=== PATIENT | male | born 1945 | race Caucasian/White ===

== ENCOUNTER 2016-08-31 11:39 | Inpatient (IN) | payer OTHER ==
[2016-08-31] VITALS (16 sets, daily range): BP systolic 82–109; BP diastolic 54–86; PULSE 56–84; RESP 16–20; O2SAT 97–100
[~2016-08-31] VITALS: Ht 175.3 cm; Wt 70.6 kg
[2016-08-31] MEDS ORDERED: NitroPRUSSIDE 25,000 mCg/mL 2 mL Inj IV ONE (11:55)
[2016-08-31] MEDS ORDERED: Nitroglycerin 50,000 mcg/250 mL D5W Premix IV ONE (11:55)
[2016-08-31] MEDS ORDERED: Heparin 1,000 Units/500 mL NS Premix IV ONE (11:55)
[2016-08-31] MEDS ORDERED: Heparin 5,000 Units/500 mL NS Premix IV ONE (11:55)
[2016-08-31] MEDS ORDERED: 0.9% Sodium Chloride 250 ML ONE (11:55)
[2016-08-31] MEDS ORDERED: Heparin 1,000 Unit/mL 10 mL Inj ONE (11:55)
[2016-08-31] MEDS ORDERED: fentaNYL-PF 50 mCg/mL 2 mL Inj ONE ×2 (12:09→12:15)
--- NOTE | 2016-08-31 12:16 | PCM.EDPN ---
ED Note Date of Service Aug 31, 2016 This is to simply documented that I received a phone call from [facility] requesting a stat transfer for a inferior ST segment elevation VT. I accepted patient transfer, and initiated the STEMI process and the Automatic Presser was activated. I reviewed the EKG that was faxed over the confirms an inferior ST segment elevation VT with reciprocal changes. I discussed the case with the secondary art teacher except the patient to come directly to the Automatic Presser. I walked with the EMS crew to the Automatic Presser to help make sure everyone in the team were present, and they were. I did not interview or examine the patient was wide awake in no visible discomfort. Ruperto Dunn MD Aug 31, 2016 12:16
[2016-08-31] MEDS ORDERED: Atropine 1 mg/10 mL (Code) Syringe ONE (12:32)
[2016-08-31 13:56] LABS: BASOPHILS % (AUTO) 0.2 % (0-3); EOSINOPHILS % (AUTO) 0.7 % (0-5); MONOCYTES % (AUTO) 8.2 % (4-12); Mean Corpuscular Hemoglobin 30.9 pg (27.0-35.0); Mean Corpuscular Volume 90.3 fL (81-100); NEUTROPHILS % (AUTO) 80.7 % (40-74); Platelet Count 207 bil/L (150-400)
[2016-08-31 14:51] LABS: Magnesium 2.1 mg/dL (1.6-2.6)
[2016-08-31 15:10] LABS: TROPONIN T 7.09 ug/L (0.0-0.011)
--- NOTE | 2016-08-31 15:24 | PCM.HPMED ---
Subjective Date of Service Aug 31, 2016 Primary Provider: Admitting Physician: Primary Care Physician: Other,Physician Attending Physician: Gorge Martines MD Chief Complaint: Inferior ST elevation MT HISTORY was OBTAINED FROM PATIENT / Zero Locus NOTES History of present illness 71-year-old male that was transferred from [facility] with elevated troponin and inferior ST elevation, taken to the [facility] s/p RCA stent/clopidogrel/Nipride/nitroglycerin/heparin with Dr Mckenzie. Trop I 7 at 2pm. He has had substernal intermittent chest pain since mother passed about 08/11/2016. No current chest pain. Per Board Mixer Tender - 1. Left main: No significant disease. 2. LAD in its mid segment has about 20% to 30% plaquing. Moderate calcification of the coronaries is noted. 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 3. Circumflex is nondominant. It is free of any critical stenosis. 4. Right coronary artery is seen via intracoronary collaterals from [id number]. 5. Right coronary artery is totally occluded in its proximal segment, as mentioned. The distal vessel is seen via intracoronary collaterals. 6. Left heart catheterization revealed an LVEDP of 15. There was no gradient upon pullback. Review of Systems - none of the following - F/C/sick contact / wt change/ HERMOSILLO / lightheaded / dizziness / sob / cough / cp / acid reflux / n/v/diarrhea / bleeding/bruising / leg swelling / change in voiding / yeast infections / rash FAMILY HX mother CABG SOCIAL HX distant smoker/etoh, MEDICATIONS multiple PRN Past Medical/Surgical HX Anxiety Agent orange dermatological left groin vasculatrure operation, related to prior injury Allergies Coded Allergies: valproic acid (Verified Allergy, Unknown, 08/31/16) PMH Social History Hx Alcohol Use: No Hx Substance Use: No Exam Vital Signs Vital Sign - Last Date Time Temp Pulse Resp B/P Pulse Ox O2 Delivery O2 Flow Rate FiO2 08/31/16 15:16 65 16 85/55 97 Room Air Lab and Diagnostics Labs Exam on admission standing in room talking w RN NAD A and O x 3 mood affect WNL NC/AT no icterus no injected eyes EOMI PERRL /no pharyngeal lesions/ no oral lesions / hearing intact Supple neck CTAB equal chest rise / no accessory muscle use / speaks in full sentences / no rrw RRR S1 S2 / no mrg / 2+ radial pulses Soft nt nd + BS no hepatosplenomegaly No edema no cyanosis no ecchymosis of lower extremities / varicose veins bilateral legs No rash / no jaundice HORVATH EKG ST elevation III/aVF, depression V2-4 SR57 Trop 7 Result Diagram: 08/31/16 1345 08/31/16 1345 Assessment & Plan Active issues and reason for admission STEMI, s/p RCA stented --monitor for hypotension, prn IVF --asa plavix statin metoprolol --pending lipid panel Chronic issues known prior to admission, present on admission Anxiety, prn ativan agent orange --pending other med rec prn meds Diet cardiac DVT prophylaxis heparin scd Code full Disposition inpatient status Assessment and plan were discussed with patient . Nikita Leung MD Aug 31, 2016 15:24 Nikita Leung MD Aug 31, 2016 15:24
[2016-08-31] MEDS ORDERED: Alum-Mag Hydrox-Simeth 30 mL Suspension PO PRN (15:25)
[2016-08-31] MEDS ORDERED: Ondansetron 2 mg/mL 2 mL Inj IVPUSH PRN ×2 (15:25→16:05)
--- NOTE | 2016-08-31 15:46 | CONS ---
[address] [address] CONSULTATION REPORT PATIENT: GERALD PADILLA : 1945 MR#: [id number] ADMIT: 08/31/2016 JOB ID: [id number] DATE OF SERVICE: 08/31/2016 CARDIOLOGY CONSULTATION: CHIEF COMPLAINT: Chest discomfort. This gentleman was transferred from [facility]. Dr. Ruperto Dunn contacted me. He was suspected of having an acute inferior IN. The patient has been having off and on chest discomfort for the past three weeks. The chest discomfort starts in his legs and goes up his chest. He also has a heaviness in his chest. He had been ignoring it up until now. He spoke with his sister who informed him that there is a family history of coronary artery disease amongst his parents. He decided to seek medical attention on the advice of his sister. An EKG done at [facility] showed inferior ST elevation. He was transferred over. The patient was examined in a gurney in the shellfish processing laborer. The patient denies any significant prior IN or medical history other than night terrors for which he was prescribed valproic acid and he is allergic to VALPROIC ACID. MEDICATIONS AT HOME: None. He uses painkillers on a p.r.n. basis. SOCIAL HISTORY: Denies smoking for the last four years. Denies any drug or alcohol abuse. Lives by himself. . REVIEW OF SYSTEMS: Comprehensive review of system was done. Pertinent negatives are no GI or bleeding. No prior history of stroke, CVAs. No upcoming surgeries. FAMILY HISTORY: Positive for coronary artery disease. PHYSICAL EXAMINATION: On examination, no significant distress noted. Verbose man who looks somewhat older than his stated age. Pulse 80, blood pressure 120/70. Neck is supple. No JVD at about a 45 degrees angle. Chest: Clear anteriorly. Heart sounds S1, S2, regular. No gallops. Abdomen is soft. Extremities negative for CCE. DESK OPERATOR: Alert and oriented. 2+ femoral pulses bilaterally. The radial pulses are 2+ as well. ASSESSMENT AND PLAN: This gentleman presented with an acute inferior myocardial infarction. His presentation is somewhat delayed, but given his ongoing ST elevation, it is possible that he has been having a stuttering type of an infarct. Risks and benefits were explained to the patient. He proceeded to go ahead with an intervention. The details about the intervention were reported elsewhere. Not unexpectedly, he had a totally occluded RCA which was stented with a bare metal stent. Bare metal stent was chosen (a) because of the risk of restenoses in a large vessel and a short stent is fairly low and (b) I am not sure about his ability to comply with medications. The patient will be admitted to the hospitalist service and Dr. Carlin will be the attending table worker packager while he is in the hospital.
[2016-08-31] MEDS ORDERED: Clopidogrel 300 mg Tablet (LOADING DOSE) PO ONE (16:05)
[2016-08-31] MEDS ORDERED: Atropine 1 mg/10 mL (Code) Syringe IVPUSH PRN (16:05)
[2016-08-31] MEDS ORDERED: 0.9% Sodium Chloride 250 ML BOLUS IV PRN (16:05)
[2016-08-31] MEDS ORDERED: 0.9% Sodium Chloride 400 ML (4 HRS) IV ONE (16:05)
[2016-08-31] MEDS ORDERED: Sodium Chloride LOK Flush 10 mL Syringe IVFLUSH PRN (16:05)
--- NOTE | 2016-08-31 16:36 | DI95 ---
[address] [address] INTERVENTIONAL CARDIAC CATHETERIZATION PATIENT: GERALD PADILLA : 1945 MR#: [id number] ADMIT: 08/31/2016 JOB ID: [id number] PROCEDURES: 1. Selective right and left coronary angiography. 2. Left heart catheterization. 3. Percutaneous intervention on the right coronary artery. INDICATION: Acute ND. PROCEDURAL DETAILS: The reader is referred to the procedure log for complete details. Briefly, it was done via right femoral approach using a 6-Iranian system. The coders are referred to the procedure log as well. DATE OF SERVICE: 08/31/2016 FINDINGS: 1. Left main: No significant disease. 2. LAD in its mid segment has about 20% to 30% plaquing. Moderate calcification of the coronaries is noted. 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 3. Circumflex is nondominant. It is free of any critical stenosis. 4. Right coronary artery is seen via intracoronary collaterals from [id number]. 5. Right coronary artery is totally occluded in its proximal segment, as mentioned. The distal vessel is seen via intracoronary collaterals. 6. Left heart catheterization revealed an LVEDP of 15. There was no gradient upon pullback. INTERVENTIONAL REPORT: We then proceeded ahead with an intervention on the RCA. It was predilated with a 2.0 balloon and then stented with a 3.5 x 15 mm bare metal Vision stent. A bare metal stent was chosen because the patient lives in the [place] and I am not certain about his medication compliance. The patient will be admitted to the hospital. and the medical team shall be resuming his care.
[2016-09-01] VITALS (9 sets, daily range): BP systolic 85–113; BP diastolic 56–73; PULSE 62–77; RESP 16–22; O2SAT 97–99
[2016-09-01 05:48] LABS: BASOPHILS % (AUTO) 0.1 % (0-3); EOSINOPHILS % (AUTO) 1.1 % (0-5); MONOCYTES % (AUTO) 12.7 % (4-12); Mean Corpuscular Volume 90.3 fL (81-100); NEUTROPHILS % (AUTO) 70.9 % (40-74); Platelet Count 216 bil/L (150-400)
[2016-09-01] MEDS ORDERED: MeTOProlol XL 25 mg ER24 Tablet PO SCH (09:30)
[2016-09-01] MEDS ORDERED: MeTOProlol XL 25 mg ER24 Tablet PO ONE (11:05)
--- NOTE | 2016-09-01 11:08 | PCM.PNCARD ---
Subjective Date of service Sep 01, 2016 Chief Complaint # Acute inferior wall STEMI # S/P successful PCI (balloon angioplasty and subsequent Vision BMS to the RCA / Dr. Martines (08/31/2016). # Single Vz CAD (RCA) # HLD # Tobacco Abuse (Quit 2013) History of Present Illness Mr. Kerwin Segura is a very pleasant 71-year-old male with no previous cardiac history. The patient was initially seen by Dr. Ruperto Dunn at [facility] for evaluation of substernal chest pain. A 12-lead EKG performed at [facility] showed Inferior ST elevation. Dr. Dunn felt that the patient was experiencing an acute inferior wall MD. The patient was transferred to [facility] and was admitted through the emergency department and subsequently taken emergently to the cardiac catheterization lab / Dr. Martines. The patient had been experiencing off and on chest discomfort for the past three weeks. The chest discomfort starts in his legs and goes up his chest. He also has a heaviness in his chest. He had been ignoring it up until now. He spoke with his sister who informed him that there is a family history of coronary artery disease amongst his parents. He decided to seek medical attention on the advice of his sister. The patient denies any significant prior MD or medical history other than night terrors for which he was prescribed valproic acid. The patient relates that he is ALLERGIC to VALPROIC ACID. Cardiac Risk Factors: 1. HLD 2. Tobacco Abuse: Quit smoking 3 years ago Coronary angiography: 08/31/2016 1. Left main: No significant disease. 2. LAD: in its mid segment has about 20% to 30% plaquing. Moderate calcification of the coronaries is noted. 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 3. LCx: Nondominant. It is free of any critical stenosis. 4. RCA: is seen via intracoronary collaterals from [id number]. 5. RCA: is totally occluded in its proximal segment, as mentioned. The distal vessel is seen via intracoronary collaterals. 6. Left heart catheterization revealed an LVEDP of 15. There was no gradient upon pullback. PCI: Dr. Martines 08/31/2016: 1. Successful balloon angioplasty and then stented with a 3.5 x 15 mm Vision BMS. A bare metal stent was chosen because the patient lives in the [place] and I am not certain about his medication compliance. Subjective: BP: 94-110/62-73 mmHg, HR: 60-72 BPM Telemetry: Today, the patient relates that he is feeling very well. He denies any type of anginal symptom, no shortness of breath/dyspnea, no palpitations, no dizziness, lightheadedness, presyncopal or jonna syncopal episodes, no lower extremity swelling, no PND/orthopnea symptoms. Current medications: 1. Metoprolol 25 mg one by mouth twice a day 2. Atorvastatin 40 mg one by mouth daily 3. Plavix 75 mg one by mouth daily 4. Aspirin 81 mg one by mouth daily 5. Lisinopril 2.5 mg one by mouth daily Labs: 09/01/2016 1. CBC: H&H: 14.4 / 41.9 (stable) 2. CMP: BUN / creatinine: 16 / 0.68 (stable) 3. Total cholesterol 193, LDL: 131, HDL: 46, VLDL: 15.4, triglycerides: 154 4. Troponin: 7.09 (Admission) Additional Information: Comprehensive review of system was done. Pertinent negatives are no GI or bleeding. No prior history of stroke, CVAs. No upcoming surgeries. Exam Vital Signs Vital Sign - Last Date Time Temp Pulse Resp B/P Pulse Ox O2 Delivery O2 Flow Rate FiO2 09/01/16 09:20 36.3 68 16 99/62 99 Room Air Intake and Output 08/31/16 08/31/16 09/01/16 Cumulative From/Thru 15:00 23:00 07:00 08/31/16 18:14 - 09/01/16 06:34 Intake Total 100 ml 100 ml Output Total 600 ml 400 ml 1000 ml Balance -600 ml -300 ml -900 ml Intake Oral 100 ml 100 ml Output Urine Total 600 ml 400 ml 1000 ml Additional Information: Gen.: Mr. Huber is a very pleasant 71-year-old male is sitting comfortably in front of me in no acute distress. He is awake alert and oriented . The patient looks somewhat older than his stated age Head: NC/AT Oropharynx: There is no posterior pharyngeal erythema or exudate noted, tongue is midline and mobile, mucous membranes are moist . Neck is supple. Supple, No JVD at about a 45 degrees angle. No apparent jugular reflux Chest: CTA Heart: RRR, normal S1, S2, no murmurs clicks or gallops are auscultated. Abdomen: soft, flat, nontender, LKS non-palpable, NABS 4 quadrants, no masses. Extremities: No pretibial edema noted, 2+ femoral pulses bilaterally. The radial pulses are 2+ bilaterally. Right groin puncture wound site: No hematoma , no ecchymosis, there is no bruit, distal pulses: Dorsalis pedis is one plus over 4. The foot is warm dry and appears to be well-perfused. Skin: Warm, dry of good turgor without masses, rashes or lesions Lab and Diagnostics Result Diagram: 09/01/1652909/01/16529 Assessment & Plan Assessment # Acute inferior wall STEMI The patient is currently stable and doing well following his recent inferior wall ST elevation MD. Recommendation: 1. Continue metoprolol 25 mg one by mouth twice a day 2. Continue aspirin 81 mg one by mouth today 3. Continue Plavix 75 mg one by mouth daily 4. Continue lisinopril 2.5 mg per day 5. Continue atorvastatin 40 mg one by mouth daily 6. Await 2-D echocardiogram to assess left ventricular function (ejection fraction) (Ordered) # Single-vessel Coronary artery disease (RCA) The patient has severe single-vessel coronary artery disease involving the right coronary artery. The right coronary artery was receiving collateral flow from the LAD prior to his PCI. Recommendation: 1. As above continue current medical management # S/P successful PCI (balloon angioplasty and subsequent Vision BMS to the RCA ) / Dr. Bobbi Martines was able to successfully balloon angioplasty and subsequently place a vision bare metal stent in the right coronary artery. Recommendation: 1. Continue current medical management as noted above # HLD Recommendation: 1. Atorvastatin as noted above Problems: Cardiology Plan: Lipid assessment & treatment, Post MD care, Cardiac Rehab ( patient will attend cardiac rehabilitation following his hospitalization for an acute inferior wall MD) Pain Evaluation: Adequate Pain Control VTE Mechanical Devices: Intermittant Pneumatic CD Conor Sheridan PA-C Sep 01, 2016 11:08
--- NOTE | 2016-09-01 14:28 | DRSVH ---
[facility] [address] [place] [place] [address] Echocardiogram Report Name: GERALD PADILLA EStudy Date : 09/01/2016 Height: 69 in Hospital Exam Location: [facility] Weight: 160 lb Gender: Male BSA: 1.9 m2 : 1945 Age: 71 yrs BP: 110/73 mmHg Reason For Study: STEMI Ordering Physician: Performed By: Shaan Johnson Interpretation Summary The left ventricle is normal in size. The ejection fraction is estimated to be 45-50%. There is inferior wall severe hypokinesis. There is posterolateral wall severe hypokinesis. The right ventricle is normal in size and function. There is moderate to severe mitral regurgitation. The IVC is of normal diameter and collapses less than 50% with a sniff. This suggests a right atrial pressure of 8 mm Hg. Procedure: A two-dimensional transthoracic echocardiogram with color flow and Doppler was performed. Parasternal images are limited; apical images are good. There is no prior echocardiogram noted for this patient. The patient was in normal sinus rhythm during the exam. Left Ventricle: The left ventricle is normal in size. There is normal left ventricular wall thickness. There is no thrombus. The ejection fraction is estimated to be 45-50%. There is inferior wall severe hypokinesis. There is posterolateral wall severe hypokinesis. There is mid inferoseptal wall hypokinesis. Spectral Doppler of the mitral valve is reversed, with an E/A wave ratio < 1.0. Right Ventricle: The right ventricle is normal in size and function. Atria: The left atrial size is normal. Right atrial size is normal. The interatrial septum is intact with no evidence for an atrial septal defect. Mitral Valve: The mitral valve leaflets appear to open well. The mitral valve leaflets are mildly calcified. There is moderate to severe mitral regurgitation. The mitral regurgitant jet is eccentrically directed. Suspect PMD of posterior mitral leaflet. Aortic Valve: The aortic valve is not well visualized. There is discrete nodular thickening of the right coronary cusp. The aortic valve is moderately calcified. There is no hemodynamically significant valvular aortic stenosis. There is trace aortic regurgitation. Tricuspid Valve: The tricuspid valve leaflets are thickened and/or calcified, but open well. Pulmonary artery pressures cannot be estimated because of the lack of a measurable TR jet velocity. There is trace tricuspid regurgitation. Pulmonic Valve: The pulmonic valve is not well visualized. Great Vessels: The aortic root is normal size. The ascending aorta could not be visualized. The pulmonary is not well visualized. The IVC is of normal diameter and collapses less than 50% with a sniff. This suggests a right atrial pressure of 8 mm Hg. Pericardium/ Pleura There is no pericardial effusion. There is no pleural effusion. MMode/2D Measurements & Calculations EPSS LA A2 area RA long axis LVOT diam: 2.3 cm : 0.7cm Ao root diam: 3.7 cm RA area Ao Arch Diam (Proximal LA A4 area trans.): 2.3 cm : 15.2 cm LA length (vol) RA vol: 41.8 ml RA LA vol: 34.4 ml : 22.2 mm2 LA vol index IVC diam: 2.0 cm TAPSE : 1.8 cm Doppler Measurements & Calculations Ao V2 max MV E max fili MV E/A: 0.82 MV dec time: 0.25 sec : 106.7 cm/sec : 80.5 cm/sec Med Peak E' Fili Ao max PG MV A max fili : 4.6 mmHg : 98.2 cm/sec E/E' med: 19.1 Ao mean PG Lat Peak E' Fili MR ERO: 0.17 cm2 LVOT Max Fili E/E' lat: 13.0 : 98.1 cm/sec YING(I,D): 3.8 cm sev ratio Ao V2 mean LV V1 max PG MR flow rate YING indexed to BSA : 73.7 cm/sec : 83.7 cm3/sec (cm^2/m^2): 2.0 Ao V2 VTI: 19.1 cmLV V1 VTI MR JULIÁN HE(V,D): 3.8 cm2 : 17.5 cm E/e' average : 16.0 Reading Physician:TR
--- NOTE | 2016-09-01 15:13 | PROG NOTE ---
[address] [address] PROGRESS NOTE PATIENT: GERALD PADILLA : 1945 MR#: [id number] ADMIT: 08/31/2016 JOB ID: [id number] DATE: 09/01/2016 I saw and examined the patient. Please see Conor Cottrell for detail. IMPRESSION: 1. Acute inferoposterior myocardial infarction, delayed presentation. 2. Status post stent to the right coronary artery with one bare metal stent (3.5 x 15 mm). 3. Left ventricular ejection fraction 45%-50%. 4. [id number] mitral regurgitation. 5. Hypercholesterolemia. 6. History of 56 pack year smoking. PLAN: I have personally reviewed his coronary angiogram. He has an excellent angiographic result. The patient will be treated with aspirin, Plavix for four weeks, beta bety, BRAVO inhibitor and statin. I anticipate the patient should be able to be discharged from the hospital tomorrow. UBALDO
--- NOTE | 2016-09-01 18:05 | PCM.PNMED ---
Subjective Date of Service Sep 01, [address] Martines "This gentleman was transferred from [facility]. He was suspected of having an acute inferior GA. The patient has been having off and on chest discomfort for the past three weeks. The chest discomfort starts in his legs and goes up his chest. He also has a heaviness in his chest. He had been ignoring it up until now. He spoke with his sister who informed him that there is a family history of coronary artery disease amongst his parents. He decided to seek medical attention on the advice of his sister. An EKG done at [facility] showed inferior ST elevation. He was transferred over. The patient was examined in a gurney in the labor relations analyst. The patient denies any significant prior GA or medical history other than night terrors for which he was prescribed valproic acid and he is allergic to Valproic Acid." Hospital Day 1 Today patient is is doing well no complaints of chest pain, shortness of breath , denies orthopnea, denies loss of appetite, denies change in bowel or bladder control, denies discomfort with catheter insertion site, denies fever, chills. Ros negative except as mentioned above Exam Vital Signs Vital Sign - Last Date Time Temp Pulse Resp B/P Pulse Ox O2 Delivery O2 Flow Rate FiO2 09/01/16 03:32 36.7 72 22 97/63 97 Room Air Intake and Output 08/31/16 08/31/16 09/01/16 Cumulative From/Thru 15:00 23:00 07:00 08/31/16 18:14 - 09/01/16 06:34 Intake Total 100 ml 100 ml Output Total 600 ml 400 ml 1000 ml Balance -600 ml -300 ml -900 ml Intake Oral 100 ml 100 ml Output Urine Total 600 ml 400 ml 1000 ml Exam General: Alert, Oriented X3, Cooperative, No Acute Distress Head: Normocephalic, atraumatic Eyes: PERRLA, EOMI. ENT: Mucous Membranes Moist/[place] Chest & Lungs: Clear to auscultation bilaterally with no crackles, wheezes, or rhonchi. Cardiovascular: Regular Rate/Rhythm, Normal S1, Normal S2, No Murmurs/Rubs/ Gallops Abdomen: Non-tender, Non-distended, No masses, Normoactive bowel tones, Soft Extremities: No cyanosis/clubbing/edema bilaterally Neurological: Grossly Neurologically Intact IVs and Medications Medications Reviewed: Medications were reviewed in detail Lab and Diagnostics Result Diagram: 09/01/16 0530 08/31/16 7705 12-lead ECG Showed presence of inferior-posterior wall GA with ST elevation in II,III,AVF Cardiac Echo Impressions Echocardiogram Interpretation Summary The left ventricle is normal in size. The ejection fraction is estimated to be 45-50%. There is inferior wall severe hypokinesis. There is posterolateral wall severe hypokinesis. The right ventricle is normal in size and function. There is moderate to severe mitral regurgitation. The IVC is of normal diameter and collapses less than 50% with a sniff. This suggests a right atrial pressure of 8 mm Hg. Reading Physician:PM Additional Diagnostics INTERVENTIONAL CARDIAC CATHETERIZATION FINDINGS: 1. Left main: No significant disease. 2. LAD in its mid segment has about 20% to 30% plaquing. Moderate calcification of the coronaries is noted. 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 3. Circumflex is nondominant. It is free of any critical stenosis. 4. Right coronary artery is seen via intracoronary collaterals from [id number]. 5. Right coronary artery is totally occluded in its proximal segment, as mentioned. The distal vessel is seen via intracoronary collaterals. 6. Left heart catheterization revealed an LVEDP of 15. There was no gradient upon pullback. INTERVENTIONAL REPORT: We then proceeded ahead with an intervention on the RCA. It was predilated with a 2.0 balloon and then stented with a 3.5 x 15 mm bare metal Vision stent. A bare metal stent was chosen because the patient lives in the [place] and I am not certain about his medication compliance. The patient will be admitted to the hospital. and the medical team shall be resuming his care. Gorge Martines MD 08/31/16 Assessment & Plan Patient is a 71 y.o. M admitted for STEMI s/p cardiac cath. ECHO ejection fraction 45%-50%. Hospital Day 1 1. Inferior wall STEMI, present on admission, improving - s/p RCA stented 08/31/16 - monitor for hypotension, prn IVF NS bolus 500 ml - Continue asa 81 mg - Continue plavix 75 mg -Continue atorvastatin 40 mg - Start metoprolol 12.5 BID - Start Lisinopril 2.5 mg QD - Lipid panel elevated LDL 131 - Cardiology following, appreciate their time and expertise managing this case 2. Chronic issues known prior to admission, present on admission - Anxiety, prn ativan - Exposure to agent orange Diet cardiac DVT prophylaxis heparin scd Code full Disposition inpatient status for >2 nights, likely discharge home tomorrow if patient remains stable overnight. Assessment and plan were discussed with patient . VTE Mechanical Devices: Intermittant Pneumatic CD Attending Statement The patient was seen and examined together with Dr. Hair on 09/01/2016 and I agree with the history, exam and plan as outlined in the note above. . MARLENA HAIR DO Sep 01, 2016 06:46 Jorge Luis Flower MD Sep 02, 2016 12:30 MARLENA HAIR DO Sep 01, 2016 06:46
[2016-09-01] MEDS: MeTOProlol XL 25 mg ER24 Tablet PO SCH (20:01)
[2016-09-02 04:34] VITALS: BP 94/57; PULSE 64; RESP 14; O2SAT 99
[2016-09-02 04:39] VITALS: PULSE 62
[2016-09-02 08:00] VITALS: PULSE 56
[2016-09-02] MEDS ORDERED: ATOR40TA69 PO (09:11)
[2016-09-02] MEDS ORDERED: LISI-571 PO (09:11)
[2016-09-02] MEDS ORDERED: METO25TA99 PO (09:11)
[2016-09-02] MEDS ORDERED: CLOP75TA28 PO (09:11)
--- NOTE | 2016-09-02 09:21 | PCM.DIMED ---
MARLENA HAIR 09/02/16 0921: Discharge Instructions Date of Service Sep 02, 2016 Dates of Hospitalization Aug 31, 2016 at 15:25 Discharge Diagnosis Discharge Diagnosis Inferior wall STEMI Medication Instructions - Continue asa 81 mg - Continue plavix 75 mg, patient should remain on antiplatelet therapy for 1 year -Continue atorvastatin 40 mg - Continue metoprolol 12.5 BID - Continue Lisinopril 2.5 mg QD Test Results Laboratory Tests 72 Hours Test 08/31/16 13:45 09/01/16 05:30 09/01/16 21:10 09/02/16 04:49 White Blood Count 12.2th/mm3 (3.8-10.1) 7.6th/mm3 (3.8-10.1) Red Blood Count 5.14mil/mm3 (4.40-5.80) 4.64mil/mm3 (4.40-5.80) Hemoglobin 15.9g/dL (13.8-17.2) 14.4g/dL (13.8-17.2) Hematocrit 46.4% (41.0-50.0) 41.9% (41.0-50.0) Mean Corpuscular Volume 90.3fL (81-100) 90.3fL (81-100) Mean Corpuscular Hemoglobin 30.9pg (27.0-35.0) 31.0pg (27.0-35.0) Mean Corpuscular Hemoglobin Concent 34.3% (32.0-37.0) 34.4% (32.0-37.0) Red Cell Distribution Width 14.7% (12.3-15.4) 14.9% (12.3-15.4) Platelet Count 207bil/L (150-400) 216bil/L (150-400) Neutrophils (%) (Auto) 80.7% (40-74) 70.9% (40-74) Lymphocytes (%) (Auto) 9.9% (14-46) 14.8% (14-46) Monocytes (%) (Auto) 8.2% (4-12) 12.7% (4-12) Eosinophils (%) (Auto) 0.7% (0-5) 1.1% (0-5) Basophils (%) (Auto) 0.2% (0-3) 0.1% (0-3) Sodium Level 138mEq/L (134-144) 137mEq/L (134-144) 138mEq/L (134-144) Potassium Level 4.6mEq/L (3.5-5.2) 4.3mEq/L (3.5-5.2) 4.2mEq/L (3.5-5.2) Chloride Level 103mEq/L (97-108) 103mEq/L (97-108) 106mEq/L (97-108) Carbon Dioxide Level 20mmol/L (18-29) 19mmol/L (18-29) 21mmol/L (18-29) Blood Urea Nitrogen 12mg/dL (8-27) 16mg/dL (8-27) 20mg/dL (8-27) Creatinine 0.70mg/dL (0.76-1.27) 0.68mg/dL (0.76-1.27) 0.72mg/dL (0.76-1.27) Estimat Glomerular Filtration Rate 118mL/min (>59) 123mL/min (>59) 115mL/min (>59) Glucose Level 82mg/dL (60-99) 101mg/dL (60-99) 97mg/dL (60-99) Hemoglobin A1c 5.7% (4.8-5.6) Calcium Level 8.9mg/dL (8.5-10.1) 8.6mg/dL (8.5-10.1) 8.6mg/dL (8.5-10.1) Magnesium Level 2.1mg/dL (1.6-2.6) Total Bilirubin 0.7mg/dL (0.0-1.2) Aspartate Amino Transf (AST/SGOT) 101U/L (0-50) Alanine Aminotransferase (ALT/SGPT) 30U/L (0-44) Alkaline Phosphatase 62U/L (25-160) Troponin T 7.09ug/L (0.0-0.011) 2.47ug/L (0.0-0.011) Total Protein 6.6g/dL (6.4-8.4) Albumin 4.0g/dL (3.4-5.0) Triglycerides Level 77mg/dL (0-149) Cholesterol Level 193mg/dL (100-199) LDL Cholesterol, Calculated 131.600mg/dL (0-99) VLDL Cholesterol 15.400mg/dL HDL Cholesterol 46mg/dL (>39) Cholesterol/HDL Ratio 4.20 (0.0-4.4) Thyroid Stimulating Hormone (TSH) 1.150uIU/mL (0.450-4.500) Diet Heart Healthy Activity Limited until seen by PCP (Activity as tolerate with chest pain, try not to over do, lifting restriction <10 lb) Call your provider Fever or Chills, Shortness of breath, Bleeding, Chest pain Patient Instructions Base on your diagnosis you will need to follow up with PCP within one week and establish care with Supervisor Ce[facility] within two weeks. Continue antiplatelet therapy with Plavix for one year Limit activity to lifting less than 10 lb Low sodium and low fat diet Check catheter incision site for signs of redness, white discharge, call PCP sooner if you see these Continue with Cardiac Rehab for 6 weeks Follow-up with PCP in: 1 week Cardiac Rehab: 6 weeks Jorge Luis Flower MD 09/02/16 1230: Discharge Instructions Attending's Statement The patient was seen and examined together with Dr. Hair on 09/02/2016 and I agree with the history, exam and plan as outlined in the note above. . MARLENA HAIR DO Sep 02, 2016 09:21 Jorge Luis Flower MD Sep 02, 2016 12:30
--- NOTE | 2016-09-02 09:50 | PROG NOTE ---
[address] [address] PROGRESS NOTE PATIENT: GERALD PADILLA : 1945 MR#: [id number] ADMIT: 08/31/2016 JOB ID: [id number] DATE: 09/02/2016 SUBJECTIVE: The patient reports having chest discomfort yesterday evening after supper. It lasted for half an hour. It occurred on the left side. It is sharp in nature. It is relieved by nitroglycerin. He feels well otherwise. He denies orthopnea, PND, palpitation, or syncope. OBJECTIVE: Temperature is 36.4. Blood pressure is 94/57. Pulse 56. Body weight is 70.6 kg. Head and face have normal configuration. Anicteric sclerae. Moist mucosa. Edentulous. Neck: Supple, with no jugular venous distention or carotid bruits. Lungs are clear to auscultation. Heart: The first heart sound is diminished. Second heart sound is normal. Grade 1/6 systolic ejection murmur at the apex. Abdomen is soft, nontender. Extremities: Clubbing of fingers present. No cyanosis or edema. Blood tests show sodium 138, potassium 4.2, chloride 106, bicarb 21, BUN 20, creatinine 0.72, glucose 97. Cholesterol 193, triglycerides 77, HDL 46, LDL 131. EKG this morning showed normal sinus rhythm 62 beats per minute. Prominent R-waves in V2 and V3. Inferior T-wave inversion. IMPRESSION: 1. Acute inferoposterior myocardial infarction, late presentation. 2. Status post stent to the right coronary artery with one bare metal stent. 3. Left ventricular ejection fraction 45% to 50%. 4. Moderate to severe mitral regurgitation. 5. Hypercholesterolemia. 6. History of 56 pack-year smoking. PLAN: The episode of chest discomfort yesterday evening is noncardiac. The patient could be discharged from the hospital today. He will be treated with aspirin, clopidogrel, beta bety, BRAVO inhibitor and statin. He will follow up with Dr. Martines in 4-6 weeks. He was referred to outpatient cardiac rehab. UBALDO
[2016-09-02 09:58] VITALS: BP 102/70; PULSE 61; RESP 16; O2SAT 99
[2016-09-02] MEDS: MeTOProlol XL 25 mg ER24 Tablet PO SCH (10:05)
--- NOTE | 2016-09-02 18:40 | PCM.DC.MED ---
Discharge Summary Date of Service Sep 02, 2016 Dates of Hospitalization Date of Hospital Admission Aug 31, 2016 at 15:25 Date of Discharge: Sep 02, 2016 Providers: Admitting Physician: Gorge Martines MD Primary Care Physician: Other,Physician Attending Physician: Gorge Martines MD Diagnosis at Time of Discharge Diagnosis at Time of Discharge Inferior wall STEMI Consultations Cardiology Procedures ECG 12 Lead Showed presence of inferior-posterior wall IN with ST elevation in II,III,AVF Cardiac Echo Impression Echocardiogram Interpretation Summary The left ventricle is normal in size. The ejection fraction is estimated to be 45-50%. There is inferior wall severe hypokinesis. There is posterolateral wall severe hypokinesis. The right ventricle is normal in size and function. There is moderate to severe mitral regurgitation. The IVC is of normal diameter and collapses less than 50% with a sniff. This suggests a right atrial pressure of 8 mm Hg. Reading Physician:TR Other Diagnostics INTERVENTIONAL CARDIAC CATHETERIZATION FINDINGS: 1. Left main: No significant disease. 2. LAD in its mid segment has about 20% to 30% plaquing. Moderate calcification of the coronaries is noted. 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 3. Circumflex is nondominant. It is free of any critical stenosis. 4. Right coronary artery is seen via intracoronary collaterals from [id number]. 5. Right coronary artery is totally occluded in its proximal segment, as mentioned. The distal vessel is seen via intracoronary collaterals. 6. Left heart catheterization revealed an LVEDP of 15. There was no gradient upon pullback. INTERVENTIONAL REPORT: We then proceeded ahead with an intervention on the RCA. It was predilated with a 2.0 balloon and then stented with a 3.5 x 15 mm bare metal Vision stent. A bare metal stent was chosen because the patient lives in the [place] and I am not certain about his medication compliance. The patient will be admitted to the hospital. and the medical team shall be resuming his care. Gorge Martines MD 08/31/16 Brief History Copied from Conor Sheridan PA-C 09/01/16 "Mr. Kerwin Segura is a very pleasant 71-year-old male with no previous cardiac history. The patient was initially seen by Dr. Ruperto Dunn at [facility] for evaluation of substernal chest pain. A 12-lead EKG performed at [facility] showed Inferior ST elevation. Dr. Dunn felt that the patient was experiencing an acute inferior wall IN. The patient was transferred to [facility] and was admitted through the emergency department and subsequently taken emergently to the cardiac catheterization lab / Dr. Martines. The patient had been experiencing off and on chest discomfort for the past three weeks. The chest discomfort starts in his legs and goes up his chest. He also has a heaviness in his chest. He had been ignoring it up until now. He spoke with his sister who informed him that there is a family history of coronary artery disease amongst his parents. He decided to seek medical attention on the advice of his sister. The patient denies any significant prior IN or medical history other than night terrors for which he was prescribed valproic acid. The patient relates that he is ALLERGIC to VALPROIC ACID." Hospital Course Patient is a 71 y.o. M admitted for STEMI s/p cardiac cath. ECHO ejection fraction 45%-50%. 1. Inferior wall STEMI, present on admission, improving - s/p RCA stented 08/31/16 - monitor for hypotension, prn IVF NS bolus 500 ml - Continue asa 81 mg - Continue plavix 75 mg -Continue atorvastatin 40 mg - Start metoprolol 12.5 BID - Start Lisinopril 2.5 mg QD - Lipid panel elevated LDL 131 - Cardiology following, appreciate their time and expertise managing this case 2. Chronic issues known prior to admission, present on admission - Anxiety, prn ativan - Exposure to agent orange Diet cardiac DVT prophylaxis heparin scd Code full Disposition inpatient status for >2 nights, likely discharge home tomorrow if patient remains stable overnight. Assessment and plan were discussed with patient . Exam Vital Signs (Last) Date Time Temp Pulse Resp B/P Pulse Ox O2 Delivery O2 Flow Rate FiO2 09/02/16 09:58 36.6 61 16 102/70 99 Room Air Exam General: Alert, Oriented X3, Cooperative, No Acute Distress Head: Normocephalic, atraumatic Eyes: PERRLA, EOMI. ENT: Mucous Membranes Moist/[place] Chest & Lungs: Clear to auscultation bilaterally with no crackles, wheezes, or rhonchi. Cardiovascular: Regular Rate/Rhythm, Normal S1, Normal S2, No Murmurs/Rubs/ Gallops Abdomen: Non-tender, Non-distended, No masses, Normoactive bowel tones, Soft Extremities: No cyanosis/clubbing/edema bilaterally Neurological: Grossly Neurologically Intact Test 08/31/16 13:45 09/01/16 05:30 09/01/16 21:10 09/02/16 04:49 Hemoglobin A1c 5.7% (4.8-5.6) Magnesium Level 2.1mg/dL (1.6-2.6) Total Bilirubin 0.7mg/dL (0.0-1.2) Aspartate Amino Transf (AST/SGOT) 101U/L (0-50) Alanine Aminotransferase (ALT/SGPT) 30U/L (0-44) Alkaline Phosphatase 62U/L (25-160) Total Protein 6.6g/dL (6.4-8.4) Albumin 4.0g/dL (3.4-5.0) White Blood Count 7.6th/mm3 (3.8-10.1) Red Blood Count 4.64mil/mm3 (4.40-5.80) Hemoglobin 14.4g/dL (13.8-17.2) Hematocrit 41.9% (41.0-50.0) Mean Corpuscular Volume 90.3fL (81-100) Mean Corpuscular Hemoglobin 31.0pg (27.0-35.0) Mean Corpuscular Hemoglobin Concent 34.4% (32.0-37.0) Red Cell Distribution Width 14.9% (12.3-15.4) Platelet Count 216bil/L (150-400) Neutrophils (%) (Auto) 70.9% (40-74) Lymphocytes (%) (Auto) 14.8% (14-46) Monocytes (%) (Auto) 12.7% (4-12) Eosinophils (%) (Auto) 1.1% (0-5) Basophils (%) (Auto) 0.1% (0-3) Triglycerides Level 77mg/dL (0-149) Cholesterol Level 193mg/dL (100-199) LDL Cholesterol, Calculated 131.600mg/dL (0-99) VLDL Cholesterol 15.400mg/dL HDL Cholesterol 46mg/dL (>39) Cholesterol/HDL Ratio 4.20 (0.0-4.4) Thyroid Stimulating Hormone (TSH) 1.150uIU/mL (0.450-4.500) Troponin T 2.47ug/L (0.0-0.011) Sodium Level 138mEq/L (134-144) Potassium Level 4.2mEq/L (3.5-5.2) Chloride Level 106mEq/L (97-108) Carbon Dioxide Level 21mmol/L (18-29) Blood Urea Nitrogen 20mg/dL (8-27) Creatinine 0.72mg/dL (0.76-1.27) Estimat Glomerular Filtration Rate 115mL/min (>59) Glucose Level 97mg/dL (60-99) Calcium Level 8.6mg/dL (8.5-10.1) Discharge Medications Discharge Medications Atorvastatin Calcium (Atorvastatin Calcium) 40 Mg Tablet 40 MG PO HS Prescribed by: MARLENA MCFADDEN DO Clopidogrel (Clopidogrel) 75 Mg Tablet 75 MG PO DAILY Prescribed by: MARLENA MCFADDEN DO Lisinopril (Lisinopril) 5 Mg Tablet 2.5 MG PO DAILY Prescribed by: MARLENA MCFADDEN DO Metoprolol Succinate ER (Metoprolol Succinate ER) 25 Mg Tab.er.24h 25 MG PO BID Prescribed by: MARLENA MCFADDEN, Additional med instructions - Continue asa 81 mg - Continue plavix 75 mg, patient should remain on antiplatelet therapy for 1 year -Continue atorvastatin 40 mg - Continue metoprolol 12.5 BID - Continue Lisinopril 2.5 mg QD Followup Plan Disposition: discharge to home Follow-up plan Continue antiplatelet therapy with Plavix for one year Limit activity to lifting less than 10 lb Low sodium and low fat diet Check catheter incision site for signs of redness, white discharge, call PCP sooner if you see these Continue with Cardiac Rehab for 6 weeks Discharge Diet: Heart Healthy Discharge Activity: Limited until seen by PCP (Activity as tolerate with chest pain, try not to over do, lifting restriction <10 lb) Patient Instructions Base on your diagnosis you will need to follow up with PCP within one week and establish care with [facility] Supervisor within two weeks. - Continue asa 81 mg - Continue plavix 75 mg, patient should remain on antiplatelet therapy for 1 year -Continue atorvastatin 40 mg - Continue metoprolol 12.5 BID - Continue Lisinopril 2.5 mg QD Limit activity to lifting less than 10 lb Low sodium and low fat diet Check catheter incision site for signs of redness, white discharge, call PCP sooner if you see these Continue with Cardiac Rehab for 6 weeks Follow-up with PCP in: 1 week Cardiac Rehab: 6 weeks Time spent Greater than 30 minutes was spent in preparation of discharge with greater than 50% of that time dedicated to patient counseling and coordination of care. . Attending Statement The patient was seen and examined together with Dr. Mcfadden on 09/02/2016 and I agree with the history, exam and plan as outlined in the note above. . MARLENA MCFADDEN DO Sep 02, 2016 16:31 Jorge Luis Flower MD Sep 04, 2016 08:05
== END 2016-09-02 11:45 | disposition home or self-care (01) | DRG 249 ==
LOC: EDBD 11:39 → SED 11:39 → SPI 12:07 → PCC 15:25
PROVIDERS: ADMIT Internal Medicine Cardiovascular Disease; ATTEND Internal Medicine Cardiovascular Disease
PROC: 02704DZ Dilation of Coronary Artery, One Artery with Intraluminal Device, Percutaneous Endoscopic Approach (ICD-10-PCS; principal; 2016-08-31)
PROC: 4A023N7 Measurement of Cardiac Sampling and Pressure, Left Heart, Percutaneous Approach (ICD-10-PCS; 2016-08-31)
PROC: B2111ZZ Fluoroscopy of Multiple Coronary Arteries using Low Osmolar Contrast (ICD-10-PCS; 2016-08-31)
DX: I21.19 ST elevation (STEMI) myocardial infarction involving other coronary artery of inferior wall (principal); F41.9 Anxiety disorder, unspecified; I34.0 Nonrheumatic mitral (valve) insufficiency; E78.5 Hyperlipidemia, unspecified; Z87.891 Personal history of nicotine dependence; Z79.82 Long term (current) use of aspirin

== ENCOUNTER 2017-02-24 09:25 | Emergency (ER) | payer OTHER ==
[~2017-02-24] VITALS: Ht 175.3 cm; Wt 75.9 kg
[~2017-02-24 09:25] MED LIST: ATOR40TA69 PO; CLOP75TA28 PO; LISI-571 PO; METO25TA99 PO
[2017-02-24 09:37] VITALS: BP 151/82; PULSE 64; RESP 18; O2SAT 100
--- NOTE | 2017-02-24 09:47 | ED.REPORT ---
HPI-General Illness Date of Service Feb 24, 2017 ED Provider: Gama Rubio MD Pt is a 71 year old male presenting to the ED complaining of nose bleeding worse on the left since 0700 this morning. He reports that he has had to use many paper towels for the bleeding but denies any puddle of blood. He denies any other symptoms at this time. Nursing Notes Stated Complaint: NOSE BLEEDING Chief Complaint: General Complaint Nursing Notes Reviewed: Yes Allergies: Coded Allergies: valproic acid (Verified Allergy, Unknown, 02/24/17) Scheduled Atorvastatin Calcium (Atorvastatin Calcium) 40 Mg Tablet 40 MG PO HS Clopidogrel (Clopidogrel) 75 Mg Tablet 75 MG PO DAILY Lisinopril (Lisinopril) 5 Mg Tablet 2.5 MG PO DAILY Metoprolol Succinate ER (Metoprolol Succinate ER) 25 Mg Tab.er.24h 25 MG PO BID General Time Seen by MD: 09:45 Chief Complaint Other (Nose bleeding) Hx Obtained From: Patient Arrived By: Walk-in Sudden in Onset?: Yes Onset Occurred: 1 - 4 hours ago Symptom Duration: Since onset Location: : Nose Severity: Current: No pain currently Severity: Maximum: No pain Recent Healthcare: No recent doctor visit, No recent hospitalization Similar Sx Previous: No Past Medical History Past Medical History Inferior wall STEMI Past Surgical History Stints Smoking History Former Smoker Ambulatory Status Independent Review of Systems Nose bleeding Full Review of Systems Constitutional: Denies: Chills, Fever Respiratory: Denies: Shortness of breath Cardiovascular: Denies: Chest pain GI: Denies: Abdominal pain Complete sys rev & neg: except as marked. Physical Exam Vital Signs Vital Signs Date Time Temp Pulse Resp B/P Pulse Ox O2 Delivery O2 Flow Rate FiO2 02/24/17 10:51 37 59 17 117/70 98 Room Air 02/24/17 09:37 36.8 64 18 151/82 100 Room Air Initial VS: Reviewed General/Constitutional: Well-developed, Well-nourished Head / Eyes: Atraumatic, Normocephalic, PERRL Respiratory: Breath sounds normal, Clear to auscultation, No respiratory distress Cardiovascular: Regular rate & rhythm, Heart sounds normal, Intact distal pulses Abdomen / GI: Soft, Non-tender, No guarding, No rebound, No distention Extremities: Vascular intact, Neuro intact, No swelling, No tenderness Skin: Warm, Dry, No cyanosis Neurologic: Alert, Oriented, Nonfocal Psychiatric: Mood/affect normal, Behavior normal, Normal thought content ENT: Airway patent, Mucous membranes moist Scant blood in throat. Posterior pharyngeal blood. Lots of blood in left nostril, no blood in right nostril. Re-Eval/Medical Decision Time of Eval: 10:38 Patient Status: Condition improved Re-Evaluation/Progress Note: Pt nose bleed resolved. Discussed plan for discharge. Pt understands and agrees with plan. Counseled Regarding: Diagnosis, Lab results, Need for follow-up, When/why to return to ED Discharge & Departure Primary Impression: Epistaxis Disposition: Home Discharge Condition All VS Reviewed: Yes Condition: Improved Patient Instructions: Nosebleed (ED) Additional Instructions: I suspect the cause for the nosebleed is a small crack in the skin inside your nostril. To prevent this from reopening, I recommend the application with a Q- tip of petroleum jelly twice daily for a week to facilitate healing. If the bleeding recurs, I recommend 2 or 3 vigorous sprays with the oxymetazoline nasal nasal spray followed by the application of the external clamp. After 15 minutes, if the bleeding is still present, draw out a cottonball into the bullet -shaped form and saturate it with the oxymetazoline insert it into your nostril and reapply the clamp. If bleeding still persists after another 15 minutes, if bleeding persists, return to the emergency department. Referrals: OTHER,PHYSICIAN (PCP) (Family) Scribe Attestation Portions of this note were transcribed by Tigre Álvarez. I, Dr. Rubio personally performed the history, physical exam and medical decision-making; I reviewed and confirmed the accuracy of the information in the transcribed note. Signed by: Chela Maynard, 02/24/17 at 1045. Gama Rubio MD Feb 24, 2017 09:47 TIGRE ÁLVAREZ Feb 24, 2017 10:02
[2017-02-24 10:51] VITALS: BP 117/70; PULSE 59; RESP 17; O2SAT 98
== END 2017-02-24 10:52 | disposition home or self-care (01) ==
LOC: SED 09:25
DX: R04.0 Epistaxis (principal); Z88.8 Allergy status to other drugs, medicaments and biological substances; Z87.891 Personal history of nicotine dependence